=== PATIENT | female | born 1985 | race Caucasian/White ===

== ENCOUNTER 2019-03-12 10:29 | Inpatient (IN) | payer OTHER ==
[2019-03-12] MEDS ORDERED: MAGNESIUM SULFATE 4 GM/100 ML 100 ML (11:10)
[2019-03-12] MEDS: LACTATED RINGER'S 1,000 ML IV ×2 (11:25→22:48)
[2019-03-12] MEDS: MAGNESIUM SULFATE 4 GM/100 ML 100 ML IVPB (11:26)
[2019-03-12] MEDS: AMPICILLIN 2 GM/NS (PMX) 100 ML IVPB (11:27)
[2019-03-12] MEDS ORDERED: CARBOPROST 250 MCG INJ IM (11:30)
[2019-03-12] MEDS ORDERED: LIDOCAINE 1% (MPF) 30 ML INJ INJ (11:30)
[2019-03-12] MEDS ORDERED: OXYTOCIN 30 UNITS/LR 500 ML IV (11:30)
[2019-03-12] MEDS ORDERED: MISOPROSTOL 200 MCG TAB PR (11:30)
[2019-03-12] MEDS ORDERED: METHYLERGONOVINE 0.2 MG INJ IM (11:30)
[2019-03-12] MEDS: MAGNESIUM SULFATE 20 GM/500 ML 500 ML IV ×2 (11:49→22:48)
[2019-03-12] MEDS: BETAMET NA PHOS/AC(6 MG/ML) 2 ML INJ SYG IM (12:07)
[2019-03-12 12:09] LABS: ADD MAN DIFF? NO
[2019-03-12 12:13] LABS: BASOPHILS % 0.5 % (0.0-2.0); EOSINOPHILS % 0.5 % (0.0-7.0); HEMATOCRIT 30.5 % (37.0-47.0); HEMOGLOBIN 10.3 g/dl (12.0-16.0); LYMPHOCYTES # 0.9 10^3/ul (0.8-2.9); LYMPHOCYTES % 10.8 % (15.0-51.0); MEAN CORPUSCULAR HEMOGLOBIN 32.1 pg (29.0-33.0); MEAN CORPUSCULAR HGB CONC 33.8 g/dl (32.0-37.0); MEAN PLATELET VOLUME 10.8 fl (7.4-10.4); MONOCYTE # 0.5 10^3/ul (0.3-0.9); MONOCYTES % 6.5 % (0.0-11.0); NEUTROPHIL # 6.4 10^3/ul (1.6-7.5); NEUTROPHILS % 81.1 % (39.0-77.0); PLATELET COUNT 147 10^3/UL (140-415); RED BLOOD COUNT 3.21 10^6/ul (4.20-5.40); RED CELL DISTRIBUTION WIDTH 11.9 % (11.5-14.5)
[2019-03-12 12:29] LABS: ADD UMIC YES; UR ASCORBIC ACID NEGATIVE (NEGATIVE); UR BILIRUBIN (Dip) NEGATIVE (NEGATIVE); UR BLOOD (Dip) NEGATIVE (NEGATIVE); UR CLARITY CLEAR (CLEAR); UR COLOR YELLOW (YELLOW); UR GLUCOSE (Dip) NEGATIVE (NEGATIVE); UR KETONES (Dip) 2+ mg/dL (NEGATIVE); UR LEUKOCYTE ESTERASE (Dip) TRACE Leu/ul (NEGATIVE); UR NITRITE (Dip) NEGATIVE (NEGATIVE); UR RBC 0 /HPF (0-5); UR SPECIFIC GRAVITY (Dip) 1.005 (1.003-1.030); UR TOTAL PROTEIN (Dip) NEGATIVE (NEGATIVE); UR UROBILINOGEN (Dip) NEGATIVE (NEGATIVE); UR WBC 4 /HPF (0-5)
[2019-03-12 12:52] LABS: INR 1.08; PROTIME 14.1 Sec (11.9-14.9); PT RATIO 1.1
[2019-03-12 12:53] LABS: PARTIAL THROMBOPLASTIN TIME 35.2 Sec (23.0-35.0)
[2019-03-12 13:04] LABS: AMPHETAMINE/METHAMPHETAMINE Negative (NEGATIVE); BARBITURATES Negative (NEGATIVE); BENZODIAZEPINES Negative (NEGATIVE); CANNABINOIDS Negative (NEGATIVE); COCAINE Negative (NEGATIVE); OPIATES Negative (NEGATIVE)
[2019-03-12] MEDS: AMPICILLIN 1 GM/NS (PMX) 50 ML IVPB ×3 (15:30→23:42)
[2019-03-12 19:18] LABS: MAGNESIUM 5.6 mg/dl (1.7-2.5)
[2019-03-12 22:28] LABS: RAPID PLASMA REAGIN NONREACTIVE (NR)
[2019-03-12] MEDS: ACETAMINOPHEN 325 MG TAB PO (23:24)
[2019-03-12 23:54] LABS: HEPATITIS B SURFACE ANTIGEN NEGATIVE (NEGATIVE)
[2019-03-13] MEDS ORDERED: BETAMET NA PHOS/AC(6 MG/ML) 2 ML INJ SYG IM (00:13)
[2019-03-13] MEDS: BETAMET NA PHOS/AC(6 MG/ML) 2 ML INJ SYG IM (00:35)
[2019-03-13 00:42] LABS: MAGNESIUM 6.9 mg/dl (1.7-2.5)
[2019-03-13] MEDS: LACTATED RINGER'S 1,000 ML IV ×2 (03:02→15:09)
[2019-03-13] MEDS: AMPICILLIN 1 GM/NS (PMX) 50 ML IVPB ×6 (03:50→21:08)
[2019-03-13] MEDS: ACETAMINOPHEN 325 MG TAB PO ×2 (04:39→22:59)
[2019-03-13 06:35] LABS: MAGNESIUM 7.3 mg/dl (1.7-2.5)
[2019-03-13] MEDS: ONDANSETRON 4 MG INJ IV (06:51)
[2019-03-13] MEDS: AZITHROMYCIN 500MG/NS (PMX) 250 ML IVPB (09:03)
[2019-03-13] MEDS: MAGNESIUM SULFATE 20 GM/500 ML 500 ML IV (09:59)
[2019-03-13 12:22] LABS: MAGNESIUM 5.7 mg/dl (1.7-2.5)
[2019-03-13 21:50] LABS: RUPTURE FETAL MEMBRANES POSITIVE (NEGATIVE)
[2019-03-13 22:30] LABS: MAGNESIUM 5.7 mg/dl (1.7-2.5)
[2019-03-14] MEDS: AMPICILLIN 1 GM/NS (PMX) 50 ML IVPB ×6 (01:06→23:17)
[2019-03-14 01:19] LABS: MAGNESIUM 5.5 mg/dl (1.7-2.5)
[2019-03-14] MEDS: LACTATED RINGER'S 1,000 ML IV ×4 (02:07→19:02)
[2019-03-14] MEDS: MAGNESIUM SULFATE 20 GM/500 ML 500 ML IV (06:24)
[2019-03-14 06:52] LABS: MAGNESIUM 5.4 mg/dl (1.7-2.5)
[2019-03-14 15:18] LABS: MAGNESIUM 4.9 mg/dl (1.7-2.5)
[2019-03-14 18:48] LABS: MAGNESIUM 4.9 mg/dl (1.7-2.5)
[2019-03-15 01:56] LABS: MAGNESIUM 4.9 mg/dl (1.7-2.5)
[2019-03-15] MEDS: MAGNESIUM SULFATE 20 GM/500 ML 500 ML IV (02:59)
[2019-03-15] MEDS: AMPICILLIN 1 GM/NS (PMX) 50 ML IVPB ×7 (02:59→23:30)
[2019-03-15 06:32] LABS: MAGNESIUM 4.8 mg/dl (1.7-2.5)
[2019-03-15] MEDS: LACTATED RINGER'S 1,000 ML IV ×3 (06:44→21:53)
[2019-03-15 12:15] LABS: MAGNESIUM 4.8 mg/dl (1.7-2.5)
[2019-03-15] MEDS: AZITHROMYCIN 500MG/NS (PMX) 250 ML IVPB (20:54)
[2019-03-15] MEDS: ACETAMINOPHEN 325 MG TAB PO (20:57)
[2019-03-16] MEDS: AMPICILLIN 1 GM/NS (PMX) 50 ML IVPB ×2 (03:21→06:56)
[2019-03-16] MEDS: LACTATED RINGER'S 1,000 ML IV ×3 (03:22→12:09)
[2019-03-16] MEDS: AMOXICILLIN 250 MG CAP PO ×3 (10:35→22:37)
[2019-03-16] MEDS: FERROUS SULFATE (EC) 325 MG TAB PO (10:35)
[2019-03-16] MEDS: ERYTHROMYCIN BASE (DR) 250 MG CAP PO ×3 (12:33→23:54)
[2019-03-17] MEDS: LACTATED RINGER'S 1,000 ML IV ×4 (03:24→19:54)
[2019-03-17] MEDS: ERYTHROMYCIN BASE (DR) 250 MG CAP PO ×4 (05:38→23:46)
[2019-03-17] MEDS: AMOXICILLIN 250 MG CAP PO ×3 (05:38→22:42)
[2019-03-17] MEDS: FERROUS SULFATE (EC) 325 MG TAB PO (09:36)
[2019-03-17] MEDS ORDERED: DIPHENOXYLATE/ATROPINE TAB PO (14:30)
[2019-03-18] MEDS: LACTATED RINGER'S 1,000 ML IV ×3 (03:55→18:59)
[2019-03-18] MEDS: AMOXICILLIN 250 MG CAP PO ×3 (06:16→22:31)
[2019-03-18] MEDS: ERYTHROMYCIN BASE (DR) 250 MG CAP PO ×3 (06:16→19:05)
[2019-03-18] MEDS: FERROUS SULFATE (EC) 325 MG TAB PO (08:59)
[2019-03-19] MEDS: ERYTHROMYCIN BASE (DR) 250 MG CAP PO ×4 (01:18→21:18)
[2019-03-19] MEDS: LACTATED RINGER'S 1,000 ML IV ×3 (03:30→19:49)
[2019-03-19] MEDS: AMOXICILLIN 250 MG CAP PO ×3 (06:11→22:24)
[2019-03-19] MEDS: FERROUS SULFATE (EC) 325 MG TAB PO (09:00)
[2019-03-20] MEDS: ERYTHROMYCIN BASE (DR) 250 MG CAP PO ×4 (03:06→22:39)
[2019-03-20] MEDS: LACTATED RINGER'S 1,000 ML IV ×3 (03:26→20:24)
[2019-03-20] MEDS: AMOXICILLIN 250 MG CAP PO ×3 (06:13→22:39)
[2019-03-20] MEDS: FERROUS SULFATE (EC) 325 MG TAB PO (09:47)
[2019-03-21] MEDS: ERYTHROMYCIN BASE (DR) 250 MG CAP PO ×2 (04:31→10:06)
[2019-03-21] MEDS: AMOXICILLIN 250 MG CAP PO (06:13)
[2019-03-21] MEDS: FERROUS SULFATE (EC) 325 MG TAB PO (09:09)
[2019-03-21] MEDS: ZINC OXIDE 20% 30 GM OINT TOP (15:54)
[2019-03-21] MEDS: NYSTATIN 15 GM OINT TOP ×2 (15:58→21:06)
[2019-03-21] MEDS ORDERED: NYSTATIN 15 GM OINT TOP (21:00)
[2019-03-22] MEDS: FERROUS SULFATE (EC) 325 MG TAB PO (08:31)
[2019-03-22] MEDS: NYSTATIN 15 GM OINT TOP ×2 (15:48→21:00)
[2019-03-23] MEDS: FERROUS SULFATE (EC) 325 MG TAB PO (09:00)
[2019-03-23 09:19] LABS: ADD MAN DIFF? NO
[2019-03-23 09:22] LABS: BASOPHIL # 0.1 10^3/ul (0.0-0.1); BASOPHILS % 0.7 % (0.0-2.0); EOSINOPHILS # 0.1 10^3/ul (0.0-0.5); EOSINOPHILS % 1.7 % (0.0-7.0); HEMATOCRIT 33.3 % (37.0-47.0); HEMOGLOBIN 11.4 g/dl (12.0-16.0); LYMPHOCYTES # 1.3 10^3/ul (0.8-2.9); LYMPHOCYTES % 15.6 % (15.0-51.0); MEAN CORPUSCULAR HEMOGLOBIN 32.5 pg (29.0-33.0); MEAN CORPUSCULAR HGB CONC 34.2 g/dl (32.0-37.0); MEAN CORPUSCULAR VOLUME 94.9 fl (82.0-101.0); MEAN PLATELET VOLUME 9.9 fl (7.4-10.4); MONOCYTE # 0.6 10^3/ul (0.3-0.9); NEUTROPHIL # 6.2 10^3/ul (1.6-7.5); NEUTROPHILS % 73.3 % (39.0-77.0); PLATELET COUNT 186 10^3/UL (140-415); RED BLOOD COUNT 3.51 10^6/ul (4.20-5.40); RED CELL DISTRIBUTION WIDTH 11.7 % (11.5-14.5)
[2019-03-23 09:22] LABS: WHITE BLOOD COUNT 8.4 10^3/ul (4.8-10.8)
[2019-03-23 10:49] LABS: IRON 81 ug/dl (35-150)
[2019-03-23 10:59] LABS: % IRON SATURATION 16 % SAT (22-52); TOTAL IRON BINDING CAPACITY 515 ug/dl (241-421)
[2019-03-23 12:42] LABS: FERRITIN 25.9 ng/ml (6.2-137.0)
[2019-03-24] MEDS: NYSTATIN 15 GM OINT TOP ×3 (21:19→21:21)
[2019-03-24] MEDS: FERROUS SULFATE (EC) 325 MG TAB PO (21:20)
[2019-03-25] MEDS: FERROUS SULFATE (EC) 325 MG TAB PO (09:12)
[2019-03-25] MEDS: NYSTATIN 15 GM OINT TOP ×2 (09:13→21:00)
[2019-03-26] MEDS: NYSTATIN 15 GM OINT TOP ×2 (09:40→21:25)
[2019-03-26] MEDS: FERROUS SULFATE (EC) 325 MG TAB PO (09:40)
[2019-03-26 11:53] LABS: ADD MAN DIFF? NO
[2019-03-26 11:56] LABS: WHITE BLOOD COUNT 10.5 10^3/ul (4.8-10.8)
[2019-03-26 11:56] LABS: BASOPHIL # 0.1 10^3/ul (0.0-0.1); BASOPHILS % 0.7 % (0.0-2.0); EOSINOPHILS # 0.1 10^3/ul (0.0-0.5); EOSINOPHILS % 1.1 % (0.0-7.0); HEMATOCRIT 33.7 % (37.0-47.0); HEMOGLOBIN 11.2 g/dl (12.0-16.0); LYMPHOCYTES # 1.2 10^3/ul (0.8-2.9); LYMPHOCYTES % 10.9 % (15.0-51.0); MEAN CORPUSCULAR HGB CONC 33.2 g/dl (32.0-37.0); MEAN CORPUSCULAR VOLUME 96.3 fl (82.0-101.0); MEAN PLATELET VOLUME 9.9 fl (7.4-10.4); MONOCYTE # 0.8 10^3/ul (0.3-0.9); MONOCYTES % 7.2 % (0.0-11.0); NEUTROPHIL # 8.3 10^3/ul (1.6-7.5); NEUTROPHILS % 78.5 % (39.0-77.0); PLATELET COUNT 195 10^3/UL (140-415); RED CELL DISTRIBUTION WIDTH 11.8 % (11.5-14.5)
[2019-03-26] MEDS: LACTATED RINGER'S 1,000 ML IV (16:59)
[2019-03-27] MEDS: LACTATED RINGER'S 1,000 ML IV ×3 (00:30→15:49)
[2019-03-27] MEDS: FERROUS SULFATE (EC) 325 MG TAB PO (09:07)
[2019-03-27] MEDS: DOCUSATE SODIUM 100 MG CAP PO (09:07)
[2019-03-27] MEDS: FOLIC ACID 0.4 MG TAB PO (09:08)
[2019-03-27] MEDS: NYSTATIN 15 GM OINT TOP ×2 (09:09→21:00)
[2019-03-28] MEDS: LACTATED RINGER'S 1,000 ML IV ×3 (00:05→16:14)
[2019-03-28] MEDS: DOCUSATE SODIUM 100 MG CAP PO (09:02)
[2019-03-28] MEDS: FERROUS SULFATE (EC) 325 MG TAB PO (09:02)
[2019-03-28] MEDS: NYSTATIN 15 GM OINT TOP (09:03)
[2019-03-28] MEDS: FOLIC ACID 0.4 MG TAB PO (09:13)
[2019-03-29] MEDS: LACTATED RINGER'S 1,000 ML IV ×2 (00:57→10:02)
[2019-03-29] MEDS: DOCUSATE SODIUM 100 MG CAP PO (10:02)
[2019-03-29] MEDS: FERROUS SULFATE (EC) 325 MG TAB PO (10:02)
[2019-03-29] MEDS: FOLIC ACID 0.4 MG TAB PO (10:09)
[2019-03-29] MEDS: ACETAMINOPHEN 325 MG TAB PO (13:32)
[2019-03-29] MEDS ORDERED: DIPHENHYDRAMINE 50 MG INJ IV (14:30)
[2019-03-29] MEDS ORDERED: ONDANSETRON 4 MG INJ IV (14:30)
[2019-03-29] MEDS ORDERED: FENTAnyl 2MCG/ML-ROPIV 0.2% 100 ML BAG EPI (14:30)
[2019-03-29] MEDS ORDERED: NALOXONE (0.4 MG/ML) INJ IV (14:30)
[2019-03-29] MEDS: OXYTOCIN 30 UNITS/LR 500 ML IV ×3 (15:53→17:57)
[2019-03-29] MEDS ORDERED: CARBOPROST 250 MCG INJ IM (18:00)
[2019-03-29] MEDS ORDERED: MISOPROSTOL 200 MCG TAB PR (18:00)
[2019-03-29] MEDS ORDERED: BENZOCAINE 20% 56 ML SPRAY TOP (18:00)
[2019-03-29] MEDS ORDERED: METHYLERGONOVINE 0.2 MG INJ IM (18:00)
[2019-03-29] MEDS ORDERED: WITCH HAZEL/GLYCERIN PAD PR (18:00)
[2019-03-29] MEDS ORDERED: NACL 0.9% 3 ML SYG IV (18:00)
[2019-03-29] MEDS ORDERED: OXYCODONE/ASPIRIN (4.88/325) TAB PO (18:00)
[2019-03-29] MEDS ORDERED: OXYTOCIN 30 UNITS/LR 500 ML IV (18:00)
[2019-03-29] MEDS ORDERED: ZOLPIDEM 5 MG TAB PO (18:00)
[2019-03-29] MEDS: SENNA/DOCUSATE NA (8.6MG/50MG) TAB PO (21:31)
[2019-03-29] MEDS: IBUPROFEN 600 MG TAB PO (23:45)
[2019-03-30] MEDS: IBUPROFEN 600 MG TAB PO ×5 (05:56→23:17)
[2019-03-30 07:11] LABS: ADD MAN DIFF? NO
[2019-03-30 07:12] LABS: WHITE BLOOD COUNT 7.3 10^3/ul (4.8-10.8)
[2019-03-30 07:12] LABS: BASOPHILS % 0.4 % (0.0-2.0); EOSINOPHILS # 0.1 10^3/ul (0.0-0.5); EOSINOPHILS % 1.2 % (0.0-7.0); HEMATOCRIT 27.4 % (37.0-47.0); HEMOGLOBIN 9.4 g/dl (12.0-16.0); LYMPHOCYTES # 1.5 10^3/ul (0.8-2.9); MEAN CORPUSCULAR HEMOGLOBIN 32.6 pg (29.0-33.0); MEAN CORPUSCULAR HGB CONC 34.3 g/dl (32.0-37.0); MEAN CORPUSCULAR VOLUME 95.1 fl (82.0-101.0); MEAN PLATELET VOLUME 10.3 fl (7.4-10.4); MONOCYTE # 0.5 10^3/ul (0.3-0.9); NEUTROPHIL # 5.1 10^3/ul (1.6-7.5); NEUTROPHILS % 70.7 % (39.0-77.0); PLATELET COUNT 182 10^3/UL (140-415); RED BLOOD COUNT 2.88 10^6/ul (4.20-5.40); RED CELL DISTRIBUTION WIDTH 11.6 % (11.5-14.5)
[2019-03-30] MEDS: SENNA/DOCUSATE NA (8.6MG/50MG) TAB PO ×2 (08:40→21:35)
[2019-03-30] MEDS: LANOLIN HPA 1 PKT TOP (12:13)
[2019-03-30] MEDS: FERROUS SULFATE (EC) 325 MG TAB PO (15:02)
[2019-03-31] MEDS: IBUPROFEN 600 MG TAB PO ×2 (05:33→13:11)
[2019-03-31 07:31] LABS: ADD MAN DIFF? NO
[2019-03-31 07:34] LABS: BASOPHIL # 0.1 10^3/ul (0.0-0.1); EOSINOPHILS # 0.2 10^3/ul (0.0-0.5); EOSINOPHILS % 3.1 % (0.0-7.0); HEMATOCRIT 29.6 % (37.0-47.0); HEMOGLOBIN 9.8 g/dl (12.0-16.0); LYMPHOCYTES # 1.5 10^3/ul (0.8-2.9); LYMPHOCYTES % 28.2 % (15.0-51.0); MEAN CORPUSCULAR HEMOGLOBIN 31.9 pg (29.0-33.0); MEAN CORPUSCULAR HGB CONC 33.1 g/dl (32.0-37.0); MEAN CORPUSCULAR VOLUME 96.4 fl (82.0-101.0); MONOCYTE # 0.3 10^3/ul (0.3-0.9); MONOCYTES % 6.5 % (0.0-11.0); NEUTROPHIL # 3.1 10^3/ul (1.6-7.5); NEUTROPHILS % 59.7 % (39.0-77.0); PLATELET COUNT 184 10^3/UL (140-415); RED BLOOD COUNT 3.07 10^6/ul (4.20-5.40); RED CELL DISTRIBUTION WIDTH 11.9 % (11.5-14.5)
[2019-03-31 07:34] LABS: WHITE BLOOD COUNT 5.2 10^3/ul (4.8-10.8)
[2019-03-31] MEDS: DIPHTH/TET/ACEL PERTUSS (ADULT) 0.5 ML VIAL IM* (09:00)
[2019-03-31] MEDS: SENNA/DOCUSATE NA (8.6MG/50MG) TAB PO (09:33)
[2019-03-31] MEDS: FERROUS SULFATE (EC) 325 MG TAB PO (09:33)
== END 2019-03-31 15:00 | disposition home or self-care (01) | DRG 807 ==
LOC: L-D 03-24 14:39 → PP1 03-29 18:21 → L-D 10:29
PROC: 10E0XZZ Delivery of Products of Conception, External Approach (ICD-10-PCS; principal; 2019-03-29)
DX: O60.13X0 Preterm labor second trimester with preterm delivery third trimester, not applicable or unspecified (principal); Z37.0 Single live birth; O90.81 Anemia of the puerperium; O69.81X0 Labor and delivery complicated by cord around neck, without compression, not applicable or unspecified; Z3A.29 29 weeks gestation of pregnancy
CPT/HCPCS: 62322; 76815; 76817; 76818; 80307; 81001; 82728; 83540; 83735; 84112; 85025; 85610; 85730; 86592; 86850; 86900; 86901; 87086; 87210; 87340; 88307; 99464